=== PATIENT | male | born 1955 | race Caucasian/White ===

== ENCOUNTER 2023-01-01 16:22 | Emergency (ER) | payer BC, MEDICAID ==
[~2023-01-01] VITALS: Ht 182.9 cm; Wt 100.0 kg
[2023-01-01 16:36] VITALS: O2SAT 99
[2023-01-01] MEDS ORDERED: VANCOMYCIN 1G PREMIX 200 ML IV ONE (17:45)
[2023-01-01] MEDS ORDERED: SODIUM CHLORIDE 0.9% 1000ML BAG (SEPSIS BOLUS) IV ONE (17:45)
[2023-01-01] MEDS ORDERED: PIPERACILLIN/TAZ 3.375G PREMIX 50 ML IV ONE (17:45)
[2023-01-01] MEDS ORDERED: KETOROLAC 15MG/ML VIAL IV ONE (17:45)
[2023-01-01 18:09] LABS: BASOPHILS % 0.9 % (0.0-2.0); EOSINOPHILS % 0.7 % (0.0-5.0); HEMATOCRIT. 42.7 % (42.0-52.0); HEMOGLOBIN. 14.5 g/dL (14.0-18.0); LYMPHOCYTES % 18.1 % (20.0-50.0); MEAN CORPUSCULAR HEMOGLOBIN 31.6 pg (28.0-32.0); MEAN PLATELET VOLUME 7.7 fl (7.4-10.4); MONOCYTES % 8.7 % (2.0-8.0); NEUTROPHILS % 71.6 % (40.0-76.0); PLATELET 232 x1000/uL (130-400); RED BLOOD CELL COUNT 4.59 mill/uL (4.7-6.1); RED CELL DISTRIBUTION WIDTH 15.3 % (11.6-14.6); WHITE BLOOD COUNT 10.4 x1000/uL (4.5-11.0)
[2023-01-01 18:16] LABS: CHLORIDE 104 mEq/L (98-107); INDEX HEMOLYSI 1 (1-3); INDEX ICTERIC 1 (1-4); INDEX LIPEMIC 1 (1-3); POTASSIUM 3.4 mEq/L (3.5-5.1); SODIUM 136 mEq/L (136-145)
[2023-01-01 18:23] LABS: ALANINE AMINOTRANSFERASE 36 IU/L (13-61); ALBUMIN 3.6 g/dL (3.4-5.0); ASPARTATE AMINOTRANSFERASE 63 IU/L (15-37); BILIRUBIN TOTAL 0.7 mg/dL (0.1-1.0); CALCIUM 8.6 mg/dL (8.5-10.1); CARBON DIOXIDE 30 mEq/L (21-32); CREATININE 0.9 mg/dL (0.6-1.3); GLUCOSE 99 mg/dL (70-105); PROTEIN TOTAL 7.6 g/dL (6.0-8.3); UREA NITROGEN BLOOD 11 mg/dL (7-21)
[2023-01-01] MEDS ORDERED: PIPERACILLIN/TAZ 3.375G PREMIX 50 ML IV NR (20:45)
[2023-01-01] MEDS ORDERED: KETOROLAC 15MG/ML VIAL IV NR (20:45)
[2023-01-01] MEDS ORDERED: VANCOMYCIN 1G PREMIX 200 ML IV NR (20:45)
[2023-01-02] MEDS ORDERED: ACETAMINOPHEN 325MG TABLET PO ONE (01:45)
[2023-01-02] MEDS ORDERED: IBUPROFEN 600MG TABLET PO ONE (02:45)
[2023-01-02 11:29] VITALS: BP 139/80; PULSE 100; RESP 18; TEMP 98.6
== END 2023-01-02 15:01 | disposition short-term general hospital (02) ==
LOC: ER 16:40
DX: S62.102A Fracture of unspecified carpal bone, left wrist, initial encounter for closed fracture (principal); J44.9 Chronic obstructive pulmonary disease, unspecified; E11.9 Type 2 diabetes mellitus without complications; L03.114 Cellulitis of left upper limb; I10 Essential (primary) hypertension; Z20.822 Contact with and (suspected) exposure to COVID-19; X58.XXXA Exposure to other specified factors, initial encounter; Y93.89 Activity, other specified; Y92.89 Other specified places as the place of occurrence of the external cause; Y99.8 Other external cause status
CPT/HCPCS: 99285; 96365; 80053; 85025; 87040; 36415; 73130; 96368; 73200; 87426; J1885; J2543; J3370; J7030; C9803

== ENCOUNTER 2023-01-29 19:14 | Emergency (ER) | payer BC, MEDICAID ==
[~2023-01-29] VITALS: Ht 185.4 cm; Wt 95.0 kg
[2023-01-29 19:16] VITALS: BP 155/74; PULSE 94; RESP 18; TEMP 98.3; O2SAT 98
[2023-01-29 19:54] LABS: EOSINOPHILS % 0.2 % (0.0-5.0); HEMATOCRIT. 50.2 % (42.0-52.0); HEMOGLOBIN. 17.2 g/dL (14.0-18.0); LYMPHOCYTES % 12.1 % (20.0-50.0); MEAN CORPUSCULAR HEMOGLOBIN 31.2 pg (28.0-32.0); MEAN CORPUSCULAR HGB CONC 34.2 g/dL (31.0-37.0); MEAN CORPUSCULAR VOLUME 91.4 fL (80.0-94.0); MEAN PLATELET VOLUME 8.2 fl (7.4-10.4); MONOCYTES % 13.4 % (2.0-8.0); NEUTROPHILS % 73.3 % (40.0-76.0); PLATELET 200 x1000/uL (130-400); RED CELL DISTRIBUTION WIDTH 13.9 % (11.6-14.6); WHITE BLOOD COUNT 8.7 x1000/uL (4.5-11.0)
[2023-01-30] MEDS ORDERED: ONDANSETRON HCL 4MG/2ML INJ IV NR (01:31)
[2023-01-30] MEDS ORDERED: SODIUM CHLORIDE 0.9% 1,000 ML IV NR (01:45)
[2023-01-30 01:59] LABS: HEMATOCRIT. 51.1 % (42.0-52.0); HEMOGLOBIN. 17.5 g/dL (14.0-18.0); MEAN CORPUSCULAR HEMOGLOBIN 31.2 pg (28.0-32.0); MEAN CORPUSCULAR HGB CONC 34.3 g/dL (31.0-37.0); MEAN CORPUSCULAR VOLUME 91.2 fL (80.0-94.0); MEAN PLATELET VOLUME 8.3 fl (7.4-10.4); PLATELET 184 x1000/uL (130-400); RED BLOOD CELL COUNT 5.61 mill/uL (4.7-6.1); RED CELL DISTRIBUTION WIDTH 13.9 % (11.6-14.6); WHITE BLOOD COUNT 8.1 x1000/uL (4.5-11.0)
[2023-01-30 02:01] LABS: DIFFERENTIAL COMMENT 1
[2023-01-30 02:02] LABS: CHLORIDE 91 mEq/L (98-107); INDEX HEMOLYSI 1 (1-3); INDEX ICTERIC 1 (1-4); INDEX LIPEMIC 1 (1-3); SODIUM 127 mEq/L (136-145)
[2023-01-30 02:12] LABS: ALANINE AMINOTRANSFERASE 25 IU/L (13-61); ALBUMIN 4.1 g/dL (3.4-5.0); ASPARTATE AMINOTRANSFERASE 19 IU/L (15-37); BILIRUBIN TOTAL 0.9 mg/dL (0.1-1.0); CALCIUM 8.5 mg/dL (8.5-10.1); CARBON DIOXIDE 30 mEq/L (21-32); GLUCOSE 110 mg/dL (70-105); PROTEIN TOTAL 8.4 g/dL (6.0-8.3); TROPONIN I HIGH SENSITIVITY 11 ng/L (<78); UREA NITROGEN BLOOD 15 mg/dL (7-21)
[2023-01-30 04:00] LABS: TROPONIN I HIGH SENSITIVITY 12 ng/L (<78)
[2023-01-30] MEDS ORDERED: ONDANSETRON 4MG ODT PO NR (04:15)
[2023-01-30] MEDS ORDERED: POTASSIUM CHLORIDE 20MEQ TABLET SR PO NR (04:15)
[2023-01-30 05:36] LABS: PLATELET ESTIMATE NORMAL
[2023-01-30] MEDS ORDERED: IBUP-2030 MT (06:28)
[2023-01-30] MEDS ORDERED: ONDA4TAB50 MT (06:28)
[2023-01-30] MEDS ORDERED: KETOROLAC 30MG/ML VIAL IV ONE (06:30)
[2023-01-30] MEDS ORDERED: POTA-354 MT (06:30)
== END 2023-01-30 08:06 | disposition home or self-care (01) ==
LOC: ER 19:14
DX: R11.2 Nausea with vomiting, unspecified (principal); R42 Dizziness and giddiness; J44.9 Chronic obstructive pulmonary disease, unspecified; E11.9 Type 2 diabetes mellitus without complications; I10 Essential (primary) hypertension
CPT/HCPCS: 99285; 83880; 85025 ×2; 36415 ×2; 96361; 70450; 96374; 80053; 83690; 84484; 74176; Q0162